=== PATIENT | female | born 1970 | race Caucasian/White ===

== ENCOUNTER → 2021-12-18 09:42 | Outpatient (BNVA) | payer MEDICARE, BC, SELFPAY | PROVIDERS: Visit Provider Internal Medicine Rheumatology | DX: M05.79 Rheumatoid arthritis with rheumatoid factor of multiple sites without organ or systems involvement (principal); Z79.899 Other long term (current) drug therapy; R21 Rash and other nonspecific skin eruption; Z11.59 Encounter for screening for other viral diseases; Z11.1 Encounter for screening for respiratory tuberculosis; Z71.85 Encounter for immunization safety counseling | CPT/HCPCS: 71046; 73130; 73630; 80076; 82565; 85025; 85651; 86140; 86480; 86704; 86803; 87340; 99204 ==

== ENCOUNTER → 2022-04-02 09:35 | Outpatient (BNVA) | payer MEDICARE, BC, SELFPAY | PROVIDERS: PCP Family Medicine; Referring Provider Family Medicine; Visit Provider Podiatrist Foot & Ankle Surgery | DX: M21.621 Bunionette of right foot (principal); M21.622 Bunionette of left foot; M20.41 Other hammer toe(s) (acquired), right foot; M20.42 Other hammer toe(s) (acquired), left foot; M21.41 Flat foot [pes planus] (acquired), right foot; M21.42 Flat foot [pes planus] (acquired), left foot; M79.671 Pain in right foot; M79.672 Pain in left foot; M77.51 Other enthesopathy of right foot and ankle | CPT/HCPCS: 99203; 99204 ==

== ENCOUNTER → 2022-06-11 12:50 | Outpatient (BNVA) | payer MEDICARE, BC, SELFPAY | PROVIDERS: PCP Family Medicine; Visit Provider Podiatrist Foot & Ankle Surgery | DX: M21.621 Bunionette of right foot (principal); M21.622 Bunionette of left foot; M20.41 Other hammer toe(s) (acquired), right foot; M20.42 Other hammer toe(s) (acquired), left foot; M21.41 Flat foot [pes planus] (acquired), right foot; M21.42 Flat foot [pes planus] (acquired), left foot; M77.51 Other enthesopathy of right foot and ankle; M77.41 Metatarsalgia, right foot; M77.42 Metatarsalgia, left foot; M05.79 Rheumatoid arthritis with rheumatoid factor of multiple sites without organ or systems involvement | CPT/HCPCS: 99215 ==

== ENCOUNTER → 2022-07-29 07:50 | Outpatient (BNVA) | payer MEDICARE, BC, SELFPAY | PROVIDERS: PCP Family Medicine; Visit Provider Podiatrist Foot & Ankle Surgery | DX: M21.621 Bunionette of right foot; M21.622 Bunionette of left foot; M20.41 Other hammer toe(s) (acquired), right foot; M20.42 Other hammer toe(s) (acquired), left foot; M21.41 Flat foot [pes planus] (acquired), right foot; M21.42 Flat foot [pes planus] (acquired), left foot; M79.671 Pain in right foot; M79.672 Pain in left foot; M77.51 Other enthesopathy of right foot and ankle; M77.41 Metatarsalgia, right foot; M77.42 Metatarsalgia, left foot; M05.79 Rheumatoid arthritis with rheumatoid factor of multiple sites without organ or systems involvement | CPT/HCPCS: 99214 ==

== ENCOUNTER 2022-08-28 07:09 | Day surgery (SDC) | payer MEDICARE, SELFPAY ==
[2022-08-27 13:48] VITALS: BMI 29.0
[2022-08-28] VITALS (7 sets, daily range): BP systolic 133–169; BP diastolic 83–109; PULSE 65–626; RESP 14–21; TEMP 36.3–36.7; O2SAT 94–98
[2022-08-28] MEDS: sodium chloride 0.9% 1,000 ML 30 ML IV (07:54)
--- NOTE | 2022-08-28 09:21 | W.PM.OPSUD ---
Surgery/Procedure H&P Update DATE OF PROCEDURE: August 28, 2022 DATE H&P PERFORMED: 07/29/22 CHANGES TO PREVIOUS DOCUMENTATION: none PREOP DIAGNOSIS: Arthrogryposis right foot PLANNED PROCEDURE: Operation Date: 08/28/22 09:05 Proposed Procedures p Amputation Toe/s 1,2,3,4,5,/81339W9/M77.41/M79.671/M20.41(Right) - Don Headley DPM
[2022-08-28] MEDS: ceFAZolin 2,000 MG in sodium chloride 0.9% (plus) 50 ML 100 MG IV (09:36)
--- NOTE | 2022-08-28 09:54 | ANES.PREANE2 ---
Pre-Anesthetic Assessment Height/Weight: Height 1.68 m Weight 81.647 kg Temp Pulse Resp BP Pulse Ox O2 Del Method 97.6 F 91 16 169/109 94 08/28/22 07:34 08/28/22 07:34 08/28/22 07:34 08/28/22 07:34 08/28/22 07:34 08/28/22 07:34 Preop Diagnosis: Arthrogryposis right foot Operation Date: 08/28/22 09:05 Proposed Procedures p Amputation Toe/s 1,2,3,4,5,/27407U5/M77.41/M79.671/M20.41(Right) - Don Headley DPM Familial anesthetic complications: none Was Beta Anastasia taken within 24 hours: N/A Was Clonidine taken within 24 hours: N/A Last intake: Intake Last Liquid Date 08/27/22 Last Liquid Time 16:00 Last Solid Date 08/27/22 Last Solid Time 16:00 Social No alcohol and No tobacco Exam alert, oriented x 3 and regular rate & rhythm Airway Submandibular: within normal limits Cervical ROM: within normal limits Mallampati: Class II Dentition: chipped Comments: Comments: poor dentition Musc/skel Rheumatoid Arthritis Anesthetic Plan ASA status: 2 Anesthesia: MAC Medications/Allergies Home Medications Medication Instructions Recorded Confirmed Last Taken Type cyclobenzaprine 10 mg tablet 10 mg PO TID 12/18/21 08/27/22 08/27/22 History duloxetine 60 mg capsule,delayed 60 mg PO DAILY 12/18/21 08/27/22 08/27/22 History release escitalopram oxalate 20 mg tablet 20 mg PO DAILY 12/18/21 08/27/22 08/27/22 History leflunomide 20 mg tablet 20 mg PO DAILY 12/18/21 08/27/22 08/27/22 History omeprazole 20 mg capsule,delayed 20 mg PO DAILY 12/18/21 08/27/22 08/27/22 History release oxycodone 10 mg tablet 10 mg PO QID PRN Pain 12/18/21 08/27/22 08/27/22 History prednisone 5 mg tablet 5 mg PO DAILY 12/18/21 08/27/22 08/27/22 History trazodone 150 mg tablet 150 mg PO BEDTIME 12/18/21 08/27/22 08/26/22 History Silicone Forefoot Prosthetic to #1 ea 06/26/22 07/29/22 Unknown Rx the right benztropine 1 mg tablet 1 mg PO DAILY 06/26/22 08/27/22 08/27/22 History Allergies Allergy/AdvReac Type Severity Reaction Status Date / Time methotrexate Allergy Severe swelling Verified 08/27/22 13:37 gabapentin AdvReac Intermediate Unknown Verified 08/27/22 13:37 Current Medications Generic Name Dose Route Start Last Admin Trade Name Alfonso PRN Reason Stop Dose Admin Sodium Chloride 1,000 mls @ 30 mls/hr 08/28/22 07:30 08/28/22 07:54 Sodium Chloride 0.9% IV 08/29/22 07:29 30 mls/hr .Q24H ESE Administration PFSH Anesthesia Medical History DDD (degenerative disc disease) Fibromyalgia GERD (gastroesophageal reflux disease) High risk medication use Immunization counseling Osteoarthritis Rheumatoid arthritis Seropositive rheumatoid arthritis of multiple sites Skin rash Surgical History History of bilateral knee replacement History of neck surgery History of total hip replacement rt Previous back surgery ruptured disc Family History Other Rheumatoid arthritis Denies family history of Diabetes CAD (coronary artery disease) Chronic kidney disease (CKD) Family history of premature coronary artery disease Lung disease Cancer Hypertension Stroke Social History Smoking and tobacco status: current every day smoker Data Anesthesia Cardiac Studies: No Data to Display
--- NOTE | 2022-08-28 14:06 | PM.OP ---
Operative Report Date of procedure: August 28, 2022 Pre-op diagnosis: Seropositive rheumatoid arthritis Hammertoe contracture to right foot second, third, fourth, fifth toes Post-op diagnosis: Same Procedure done: Right great toe amputation at metatarsophalangeal joint. CPT code 78888 Right second toe amputation at metatarsophalangeal joint. CPT code 44160 Right third toe amputation at metatarsophalangeal joint. CPT code 58614 Right fourth toe amputation at metatarsophalangeal joint. CPT code 19590 Right fifth toe amputation at metatarsal phalangeal joint. CPT code 34898 Implants: 2-0 Vicryl, 4-0 Vicryl, 4-0 nylon Pathology: Great toe, second toe, third toe, fourth toe, fifth toe all right foot sent to pathology for permanent/gross Surgeon: Don Headley D.P.M. Political Science Faculty Member: See intraoperative documentation Estimated blood loss: 25 See intraoperative documentation IV fluids: None Urine output: 0 Complications: None Findings: Nonreducible hammertoe deformities with triplane deformity of digits 2, 3, 4 and 5 right foot. Brief History: Patient requesting transmetatarsal mutation, not interested in hammertoe correction or bunion deformity correction.? Declined psych consult.? I advised patient that there is an emotional component to an amputation of this nature and that she would potentially benefit from a mental health evaluation in preparation for this in the event potentially speaking with somebody who has undergone this type of surgery.? Patient declined any referral of this nature.? She states that she is very sure of herself that this is her best option with her personality type and activity/lifestyle.? She like to schedule her right transmetatarsal mutation August 28, 2022.? I reviewed at length with the patient, the risks, potential complications, benefits, alternatives, expectations, and typical outcomes associated with the surgery. The risks and potential complications were explained in detail, including but not limited to infection, wound dehiscence or soft tissue complications, bleeding and hematoma, chronic edema, neuritis or nerve damage producing numbness or chronic pain, CRPS, failure to relieve pain or worsening pain, thick / painful / unsightly scar, limited motion / stiffness, malposition, delayed union, malunion, or nonunion, fracture, reaction to implants, anesthetic complications, venous thromboembolism, and deformity recurrence.? I discussed the notion of no regrets with the patient as it pertains to complications and outcomes. The patient seemed to understand the nature of the proposed care and required convalescence. They asked appropriate questions, answered to their satisfaction. They are aware no guarantees can be made as to a satisfactory outcome and they understand there may be other possible unforeseen complications or outcomes not listed here that will be treated accordingly if they arise. There were no written or implied guarantees given to the patient. They gave informed consent to proceed.? Patient will require a wheelchair for her recovery to remain nonweightbearing, has poor upper body strength and shoulder pain. Procedure: Under mild sedation the patient was brought to the operating room and remained on the gurney in supine position. A timeout was performed. Anesthesia was then administered by the anesthesia service. Local anesthesia injected by myself and a first, second, third, fourth, fifth ray block fashion consisting of 30 cc of 0.25% Marcaine plain to the right foot. 20 cc of Exparel infiltrated subcutaneously in a grid like fashion dorsally and plantarly at the right midfoot. Well-padded pneumatic tourniquet was then applied to the right ankle. The right lower extremity was then scrubbed, prepped and draped utilizing normal aseptic technique. Right foot was exanguinated with an Esmarch bandage and the tourniquet was then inflated to 250 mmHg. Attention was directed to the right foot where impressive contractures of lesser digits was appreciated. The second toe, third toe, fourth toe and fifth toe had nonreducible triplane component contractures. Similar weightbearing demonstrated that toes 2 through 5 did not purchase the ground when loading the foot. #10 blade utilized to perform full-thickness semielliptical incisions encompassing the first, second, third, fourth, fifth metatarsal phalangeal joints maintaining as much soft tissue both dorsally and plantarly as allowable. Incision was full-thickness down to bone. The great toe, second toe, third toe, fourth toe, fifth toe were then disarticulated sharply through the respective metatarsal phalangeal joints and passed from the operative field to be sent to pathology for permanent/gross identification. The incision was irrigated with copious amounts of sterile skin solution. Flexor and extensor tendons were transected under traction. All bleeders were ligated and cauterized as necessary. Further irrigation was performed with copious amounts of sterile skin solution. Deep fascia was then reapproximated utilizing 2-0 Vicryl, subcutaneous tissue was reapproximated 4-0 Vicryl and skin with 4-0 nylon, plantar and dorsal flaps at the right forefoot amputation of all toes were reapproximated without excessive tension. The incision was then dressed with Adaptic, sterile 4 x 4, Kerlix and Tod wrap, cam boot was applied. Tourniquet was deflated. A prompt hyperemic response was noted at the distal amputation sites of the right foot. Patient tolerated procedure well and was transferred to the PACU with vital signs stable and vascular status intact. Following a period of postoperative monitoring patient will be discharged home may heel touch only for transfers. She has a long-term pain management contract. No additional pain medication was prescribed. She also has muscle relaxers already prescribed to her. Has follow-up scheduled in podiatry clinic as well as at home discharge instructions and at home care instructions. Was provided my cell phone number to contact with any questions or concerns.
--- NOTE | 2022-08-28 14:43 | ANE.PACU2 ---
Inpatient post-anesthesia follow up: Airway intact: Yes Vital signs: Temperature 97.9 F Pulse Rate 65 Respiratory Rate 16 Blood Pressure 133/83 Pulse Oximetry 97 Oxygen Delivery Me thod Room Air Oxygen Flow Rate 6 Fraction of Inspir ed Oxygen Hydration adequate: Yes Nausea and vomiting: No Pain level: 2 Mental status: Baseline
== END 2022-08-28 11:50 | disposition home or self-care (01) ==
PROVIDERS: PCP Family Medicine; Visit Provider Podiatrist Foot & Ankle Surgery
PROC: (CPT 28820; principal; 2022-08-28 08:55)
DX: M20.41 Other hammer toe(s) (acquired), right foot (principal); M20.5X1 Other deformities of toe(s) (acquired), right foot; M79.7 Fibromyalgia; K21.9 Gastro-esophageal reflux disease without esophagitis; M06.9 Rheumatoid arthritis, unspecified; F17.210 Nicotine dependence, cigarettes, uncomplicated
CPT/HCPCS: 28820 ×5; 88305; 88311; C9290; J0690; J1100; J2250; J2405; J2704; J3010; J3490; J7030

== ENCOUNTER → 2022-09-28 13:49 | Outpatient (BNVA) | payer MEDICARE, SELFPAY | PROVIDERS: PCP Family Medicine; Visit Provider Podiatrist Foot & Ankle Surgery | DX: Z98.890 Other specified postprocedural states (principal); Z89.421 Acquired absence of other right toe(s); Z89.411 Acquired absence of right great toe | CPT/HCPCS: 99024 ==

== ENCOUNTER 2022-11-06 05:22 | Day surgery (SDC) | payer MEDICARE, SELFPAY ==
[2022-11-05 10:17] VITALS: BMI 27.3
[2022-11-06] VITALS (11 sets, daily range): BP systolic 134–181; BP diastolic 82–106; PULSE 65–73; RESP 14–18; TEMP 36.1–36.6; O2SAT 95–100
[2022-11-06] MEDS: sodium chloride 0.9% 1,000 ML 30 ML IV (06:06)
--- NOTE | 2022-11-06 06:33 | ANES.PREANE2 ---
Pre-Anesthetic Assessment Height/Weight: Height 1.7 m Weight 79.379 kg Temp Pulse Resp BP Pulse Ox O2 Del Method 97.8 F 73 18 158/86 96 11/06/22 05:58 11/06/22 05:58 11/06/22 05:58 11/06/22 05:58 11/06/22 05:58 11/06/22 06:02 Preop Diagnosis: Hammertoes, arthrogryposis, room toward arthritis, left foot. Operation Date: 11/06/22 07:00 Proposed Procedures p Amputation of toes 1, 2, 3, 4, 5 left foot 13398, 22029, 73324, 06617, 84113, M77.42,M79.672,M20.42,M05.79(Left) - Don Headley DPM Familial anesthetic complications: None Was Beta Anastasia taken within 24 hours: N/A Was Clonidine taken within 24 hours: N/A Last intake: Intake Last Liquid Date 11/05/22 Last Liquid Time 16:00 Last Solid Date 11/05/22 Last Solid Time 14:00 Social Tobacco (Marijuana) and No alcohol .5 pack(s) per day Exam alert, oriented x 3, clear to auscultation bilaterally and regular rate & rhythm Airway Submandibular: within normal limits Cervical ROM: Other (Decreased ROM) Mallampati: Class II Dentition: other (Missing) History/ROS No significant history except as noted and No significant complaints Pulmonary Chronic Obstructive Pulmonary Disease and Sleep Apnea (CPAP at night) CV/HEM Coronary Artery Disease and Hypertension None reported Hepatic None reported GI Gastroesophageal Reflux Disease (None this am) Metabolic None reported Musc/skel Fibromyalgia, Lower Back Pain and Osteoarthritis/DJD Prednisone 5mg daily Neuropsych Neuropathy Anesthetic Plan ASA status: 2 Anesthesia: Anesthesia Evaluation, General and MAC Risk of > 500 ml blood loss (7ml/kg in children): No Medications/Allergies Home Medications Medication Instructions Recorded Confirmed Last Taken Type cyclobenzaprine 10 mg tablet 10 mg PO TID 12/18/21 11/05/22 11/05/22 History escitalopram oxalate 20 mg tablet 20 mg PO DAILY 12/18/21 11/05/22 11/05/22 History leflunomide 20 mg tablet 20 mg PO DAILY 12/18/21 11/06/22 11/05/22 History omeprazole 20 mg capsule,delayed 20 mg PO DAILY 12/18/21 11/05/22 11/05/22 History release oxycodone 10 mg tablet 10 mg PO QID PRN Pain 12/18/21 11/05/22 11/05/22 History prednisone 5 mg tablet 5 mg PO DAILY 12/18/21 11/05/22 11/05/22 History trazodone 150 mg tablet 150 mg PO BEDTIME 12/18/21 11/05/22 11/05/22 History Silicone Forefoot Prosthetic to #1 ea 06/26/22 10/22/22 11/05/22 Rx the right Orthopedic Shoes with a Toe Filler #1 ea 10/05/22 10/22/22 11/05/22 Rx for the Right Foot Toe Filler for the Left Foot #1 ea 11/03/22 11/03/22 11/05/22 Rx Allergies Allergy/AdvReac Type Severity Reaction Status Date / Time methotrexate Allergy Severe swelling Verified 10/22/22 13:32 gabapentin AdvReac Intermediate Unknown Verified 10/22/22 13:32 Current Medications Generic Name Dose Route Start Last Admin Trade Name Freq PRN Reason Stop Dose Admin Sodium Chloride 1,000 mls @ 30 mls/hr 11/06/22 05:45 11/06/22 06:06 Sodium Chloride 0.9% IV 11/07/22 05:44 30 mls/hr .Q24H ESE Administration PFSH Anesthesia Medical History DDD (degenerative disc disease) Fibromyalgia GERD (gastroesophageal reflux disease) High risk medication use Immunization counseling Osteoarthritis Rheumatoid arthritis Seropositive rheumatoid arthritis of multiple sites Skin rash Surgical History History of bilateral knee replacement History of neck surgery History of total hip replacement rt Previous back surgery ruptured disc Family History Other Rheumatoid arthritis Denies family history of Diabetes CAD (coronary artery disease) Chronic kidney disease (CKD) Family history of premature coronary artery disease Lung disease Cancer Hypertension Stroke Social History Smoking and tobacco status: current every day smoker Data Anesthesia Cardiac Studies: No Data to Display
--- NOTE | 2022-11-06 06:35 | W.PM.OPSUD ---
Surgery/Procedure H&P Update DATE OF PROCEDURE: November 06, 2022 DATE H&P PERFORMED: 10/22/22 CHANGES TO PREVIOUS DOCUMENTATION: None PREOP DIAGNOSIS: Hammertoes, arthrogryposis, room toward arthritis, left foot. PLANNED PROCEDURE: Operation Date: 11/06/22 07:00 Proposed Procedures p Amputation of toes 1, 2, 3, 4, 5 left foot 13010, 99511, 56736, 31141, 39911, M77.42,M79.672,M20.42,M05.79(Left) - Don Headley DPM
--- NOTE | 2022-11-06 06:36 | P.OP_ITS ---
Operative Report Brief History: Patient requesting transmetatarsal mutation, not interested in hammertoe correction or bunion deformity correction.? Declined psych consult.? I advised patient that there is an emotional component to an amputation of this nature and that she would potentially benefit from a mental health evaluation in preparation for this in the event potentially speaking with somebody who has undergone this type of surgery.? Patient declined any referral of this nature.? She states that she is very sure of herself that this is her best option with her personality type and activity/lifestyle.? She like to schedule her left transmetatarsal mutation August 28, 2022.? I reviewed at length with the patient, the risks, potential complications, benefits, alternatives, expectations, and typical outcomes associated with the surgery. The risks and potential complications were explained in detail, including but not limited to infection, wound dehiscence or soft tissue complications, bleeding and hematoma, chronic edema, neuritis or nerve damage producing numbness or chronic pain, CRPS, failure to relieve pain or worsening pain, thick / painful / unsightly scar, limited motion / stiffness, malposition, delayed union, malunion, or nonunion, fracture, reaction to implants, anesthetic complications, venous throm boembolism, and deformity recurrence.? I discussed the notion of no regrets with the patient as it pertains to complications and outcomes. The patient seemed to understand the nature of the proposed care and required convalescence. They asked appropriate questions, answered to their satisfaction. They are aware no guarantees can be made as to a satisfactory outcome and they understand there may be other possible unforeseen complications or outcomes not listed here that will be treated accordingly if they arise. There were no written or implied guarantees given to the patient. They gave informed consent to proceed.? Patient will require a wheelchair for her recovery to remain nonweightbearing, has poor upper body strength and shoulder pain. Procedure: Date of procedure: November 06, 2022 Pre-op diagnosis: Seropositive rheumatoid arthritis Hammertoe contracture to left foot second, third, fourth, fifth toes Arthrogryposis Post-op diagnosis: Same Procedure done: Left great toe amputation at metatarsophalangeal joint.? CPT code 72959 Left second toe amputation at metatarsophalangeal joint.? CPT code 45533 Left third toe amputation at metatarsophalangeal joint.? CPT code 94881 Left fourth toe amputation at metatarsophalangeal joint.? CPT code 27635 Left fifth toe amputation at metatarsal phalangeal joint.? CPT code 39004 Implants: 2-0 Vicryl, 4-0 Vicryl, 4-0 nylon Pathology: Great toe, second toe, third toe, fourth toe, fifth toe all left foot sent to pathology for permanent/gross Surgeon: Don Headley D.P.M. Psychology Intern: Fransisca See intraoperative documentation Estimated blood loss: 10 mL Tourniquet time: 30 minutes IV fluids: None Urine output: 0 Complications: None Findings: Nonreducible hammertoe deformities with triplane deformity of digits 2, 3, 4 and 5 left foot. Procedure: Under mild sedation the patient was brought to the operating room and remained on the gurney in supine position.? A timeout was performed.? Anesthesia was then administered by the anesthesia service.? Local anesthesia injected by myself and a first, second, third, fourth, fifth ray block fashion consisting of 30 cc of 0.25% Marcaine plain to the left foot.? 20 cc of Exparel infiltrated subcutaneously in a grid like fashion dorsally and plantarly at the left midfoot.? Well-padded pneumatic tourniquet was then applied to the left ankle.? The left lower extremity was then scrubbed, prepped and draped utilizing normal aseptic technique.? Left foot was exanguinated with an Esmarch bandage and the tourniquet was then inflated to 250 mmHg. 6 Attention was directed to the left foot where impressive contractures of lesser digits was appreciated.? The second toe, third toe, fourth toe and fifth toe had nonreducible triplane component contractures.? Similar weightbearing demonstrated that toes 2 through 5 did not purchase the ground when loading the foot.? #10 blade utilized to perform full-thickness semielliptical incisions encompassing the first, second, third, fourth, fifth metatarsal phalangeal joints maintaining as much soft tissue both dorsally and plantarly as allowable.? Incision was full-thickness down to bone.? The great toe, second toe, third toe, fourth toe, fifth toe were then disarticulated sharply through the respective metatarsal phalangeal joints and passed from the operative field to be sent to pathology for permanent/gross identification.? The incision was irrigated with copious amounts of sterile skin solution.? Flexor and extensor tendons were transected under traction.? All bleeders were ligated and caut erized as necessary.? Further irrigation was performed with copious amounts of sterile skin solution.? Deep fascia was then reapproximated utilizing 2-0 Vicryl, subcutaneous tissue was reapproximated 4-0 Vicryl and skin with 4-0 nylon, plantar and dorsal flaps at the left forefoot amputation of all toes were reapproximated without excessive tension.? The incision was then dressed with Adaptic, sterile 4 x 4, Kerlix and Tod wrap, cam boot was applied.? Tourniquet was deflated.? A prompt hyperemic response was noted at the distal amputation sites of the left foot.? Patient tolerated procedure well and was transferred to the PACU with vital signs stable and vascular status intact.? Following a period of postoperative monitoring patient will be discharged home may heel touch only for transfers.? She has a long-term pain management contract.? No additional pain medication was prescribed.? She also has muscle relaxers already prescribed to her.? Has follow-up scheduled in podiatry clinic as well as at home discharge instructions and at home care instructions.? Was provided my cell phone number to contact with any questions or concerns.
[2022-11-06] MEDS: ceFAZolin 2,000 MG in sodium chloride 0.9% (plus) 50 ML 100 MG IV (06:57)
[2022-11-06] MEDS: fentaNYL 50 mcg/mL INJ 2mL 100 MCG IVP (08:35)
[2022-11-06] MEDS: ondansetron 2 mg/ML SDV 2 mL 4 MG IVP (08:36)
[2022-11-06] MEDS: oxyCODONE 5 mg IR Tab/Cap 10 MG PO (09:18)
--- NOTE | 2022-11-06 14:09 | ANE.PACU2 ---
Inpatient post-anesthesia follow up: Airway intact: Yes Vital signs: Temperature 97 F Pulse Rate 65 Respiratory Rate 18 Blood Pressure 158/90 Pulse Oximetry 96 Oxygen Delivery Me thod Room Air Oxygen Flow Rate Fraction of Inspir ed Oxygen Hydration adequate: Yes Nausea and vomiting: No Pain level: 5 Mental status: Baseline Additional Comments: Lots of pain postop, ankle blk by surgeon, pop blk by anesthesia--difficult to control.
== END 2022-11-06 09:00 | disposition home or self-care (01) ==
PROVIDERS: PCP Family Medicine; Visit Provider Podiatrist Foot & Ankle Surgery
PROC: (CPT 28820; principal; 2022-11-06 07:00)
DX: M20.42 Other hammer toe(s) (acquired), left foot (principal); M05.9 Rheumatoid arthritis with rheumatoid factor, unspecified; J44.9 Chronic obstructive pulmonary disease, unspecified; M79.7 Fibromyalgia; Z79.52 Long term (current) use of systemic steroids; G47.30 Sleep apnea, unspecified; I25.10 Atherosclerotic heart disease of native coronary artery without angina pectoris; I10 Essential (primary) hypertension; K21.9 Gastro-esophageal reflux disease without esophagitis; Z79.899 Other long term (current) drug therapy; F17.200 Nicotine dependence, unspecified, uncomplicated
CPT/HCPCS: 28820 ×5; 88305; 88311; C9290; J0690; J1170; J2250; J2405; J2704; J3010; J3490; J7030

== ENCOUNTER → 2022-11-12 13:48 | Outpatient (BNVA) | payer MEDICARE, SELFPAY | PROVIDERS: PCP Family Medicine; Visit Provider Podiatrist Foot & Ankle Surgery | DX: Z98.890 Other specified postprocedural states (principal) | CPT/HCPCS: 99024 ==

== ENCOUNTER → 2022-11-26 14:18 | Outpatient (BNVA) | payer MEDICARE, SELFPAY | PROVIDERS: PCP Family Medicine; Visit Provider Podiatrist Foot & Ankle Surgery | DX: Z98.890 Other specified postprocedural states (principal); Z89.422 Acquired absence of other left toe(s); Z89.412 Acquired absence of left great toe | CPT/HCPCS: 99213 ==

== ENCOUNTER → 2022-12-17 13:03 | Outpatient (BNVA) | payer MEDICARE, SELFPAY | PROVIDERS: PCP Family Medicine; Visit Provider Podiatrist Foot & Ankle Surgery | DX: Z98.890 Other specified postprocedural states (principal); M79.672 Pain in left foot; M79.671 Pain in right foot; Z89.422 Acquired absence of other left toe(s); Z89.412 Acquired absence of left great toe | CPT/HCPCS: 36415; 73630; 80076; 82565; 85025; 86140; 99024 ==

== ENCOUNTER 2022-12-17 13:40 | Outpatient (CLI) | payer MEDICARE, SELFPAY ==
[2022-12-17 14:39] LABS: Basophils # 0.1 10^3/uL (0.0-0.1); Eosinophils # 0.1 10^3/uL (0.0-0.8); Eosinophils % 0.7 %; Hematocrit 38.4 % (37.0-47.0); Hemoglobin 12.4 g/dL (11.5-15.3); Lymphocytes % 11.5 %; Mean Corpuscular HGB Conc 32.3 g/dL (30.0-36.0); Mean Corpuscular Hemoglobin 27.9 pg (28.0-34.0); Mean Corpuscular Volume 86.5 fl (81-99); Mean Platelet Volume 10.1 fL (7.4-10.4); Monocytes # 0.6 10^3/uL (0.2-0.9); Monocytes % 7.6 %; Neutrophils # 6.65 10^3/uL (1.8-7.7); Nucleated Red Blood Cells % 0 %; Platelet Count 304 10^3/cmm (130-400); Red Blood Count 4.44 10^6/uL (4.1-5.3); Red Cell Distribution Width 13.1 % (12.1-15.1); White Blood Count 8.4 10^3/uL (4.0-10.0)
[2022-12-17 15:02] LABS: Alanine Aminotransferase 9 U/L (0-33); Albumin Level 3.9 g/dL (3.5-5.2); Alkaline Phosphatase 124 U/L (35-105); Aspartate Amino Transferase 15 U/L (0-32); C Reactive Protein 13.1 mg/L (0.0-4.9); Globulin 3.3 g/dL (1.3-4.6); Glomerular Filtration Rate 57.8 mL/min (90-130); Total Bilirubin 0.2 mg/dL (0.15-1.2); Total Protein 7.2 g/dL (6.6-8.7)
== END 2022-12-17 13:41 | disposition home or self-care (01) ==
LOC: LAB 13:44
PROVIDERS: PCP Family Medicine; Visit Provider Internal Medicine Rheumatology
DX: M05.79 Rheumatoid arthritis with rheumatoid factor of multiple sites without organ or systems involvement (principal); Z79.899 Other long term (current) drug therapy; M19.90 Unspecified osteoarthritis, unspecified site; Z98.890 Other specified postprocedural states; M79.672 Pain in left foot; M79.671 Pain in right foot; Z89.422 Acquired absence of other left toe(s); Z89.412 Acquired absence of left great toe
CPT/HCPCS: 36415; 80076; 82565; 85025; 86140; 99024

== ENCOUNTER → 2022-12-29 14:09 | Outpatient (BNVA) | payer MEDICARE, SELFPAY | PROVIDERS: PCP Family Medicine; Visit Provider Internal Medicine Rheumatology | DX: M05.79 Rheumatoid arthritis with rheumatoid factor of multiple sites without organ or systems involvement (principal); Z79.899 Other long term (current) drug therapy; Z71.85 Encounter for immunization safety counseling; R21 Rash and other nonspecific skin eruption | CPT/HCPCS: 99214 ==

== ENCOUNTER → 2023-01-11 14:42 | Outpatient (BNVA) | payer MEDICARE, SELFPAY | PROVIDERS: PCP Family Medicine; Visit Provider Podiatrist Foot & Ankle Surgery | DX: M77.41 Metatarsalgia, right foot (principal); M77.42 Metatarsalgia, left foot; Z89.432 Acquired absence of left foot; Z89.431 Acquired absence of right foot; M06.871 Other specified rheumatoid arthritis, right ankle and foot; M06.872 Other specified rheumatoid arthritis, left ankle and foot | CPT/HCPCS: 99213 ==

== ENCOUNTER → 2023-03-22 11:04 | Outpatient (BNVA) | payer MEDICARE, SELFPAY | PROVIDERS: PCP Family Medicine; Visit Provider Podiatrist Foot & Ankle Surgery | DX: M05.79 Rheumatoid arthritis with rheumatoid factor of multiple sites without organ or systems involvement; Z89.432 Acquired absence of left foot; Z89.431 Acquired absence of right foot; M06.30 Rheumatoid nodule, unspecified site | CPT/HCPCS: 99213 ==

== ENCOUNTER 2023-04-02 09:40 | Day surgery (SDC) | payer MEDICARE, SELFPAY ==
[2023-04-01 12:03] VITALS: BMI 25.5
[2023-04-02] VITALS (14 sets, daily range): BP systolic 103–149; BP diastolic 57–102; PULSE 67–76; RESP 16–18; TEMP 36.6–36.8; O2SAT 92–100; BMI 25.5
[2023-04-02] MEDS: CELEcoxib 200 mg Capsule 400 MG PO (10:19)
[2023-04-02] MEDS: sodium chloride 0.9% 1,000 ML 30 ML IV (10:19)
--- NOTE | 2023-04-02 10:49 | P.ANESASSM_ITS ---
Pre-Anesthetic Assessment Height/Weight: Height 1.7 m Weight 73.936 kg O2 Del Method Room Air 04/02/23 09:52 Preop Diagnosis: Rheumatoid nodules, metatarsalgia, left foot. Operation Date: 04/02/23 11:25 Proposed Procedures p Left transmetatarsal amputation 69374,M06.30,M05.79,m79.672,M77.4(Left) - Don Headley DPM Familial anesthetic complications: None Was Beta Anastasia taken within 24 hours: N/A Was Clonidine taken within 24 hours: N/A Last intake: Intake Last Liquid Date 04/01/23 Last Liquid Time 21:00 Last Solid Date 04/01/23 Last Solid Time 21:00 Social Tobacco and No alcohol Marijuana Exam alert, oriented x 3, clear to auscultation bilaterally and regular rate & rhythm Airway Mallampati: Class II Dentition: other (poor dentition) Pulmonary Chronic Obstructive Pulmonary Disease and Sleep Apnea CV/HEM Coronary Artery Disease and Hypertension GI Gastroesophageal Reflux Disease [facility] [place] Fibromyalgia and Rheumatoid Arthritis (prednisone 5 mg daily ) Anesthetic Plan ASA status: 3 Anesthesia: MAC Risk of > 500 ml blood loss (7ml/kg in children): No Medications/Allergies Home Medications Medication Instructions Recorded Confirmed Last Taken Type cyclobenzaprine 10 mg tablet 10 mg PO TID PRN Muscle Spasm 12/18/21 04/01/23 03/31/23 History escitalopram oxalate 20 mg tablet 20 mg PO DAILY 12/18/21 04/01/23 04/01/23 History 0800 leflunomide 20 mg tablet 20 mg PO DAILY 12/18/21 04/01/23 04/01/23 History omeprazole 20 mg capsule,delayed 20 mg PO DAILY PRN Heartburn 12/18/21 04/01/23 03/31/23 History release oxycodone 10 mg tablet 10 mg PO QID PRN Pain 12/18/21 04/02/23 04/02/23 07:45 History prednisone 5 mg tablet 5 mg PO DAILY 12/18/21 04/01/23 04/01/23 History 0800 trazodone 150 mg tablet 150 mg PO BEDTIME 12/18/21 04/01/23 04/01/23 History Silicone Forefoot Prosthetic to #1 ea 06/26/22 03/22/23 11/05/22 Rx the right Orthopedic Shoes with a Toe Filler #1 ea 10/05/22 03/22/23 11/05/22 Rx for the Right Foot Orthopedic Shoes 1 Pair #1 ea 01/11/23 03/22/23 Unknown Rx Toe Filler Bilateral #1 ea 01/11/23 03/22/23 Unknown Rx benztropine 1 mg tablet 1 mg PO DAILY 04/01/23 04/01/23 04/01/23 History duloxetine 60 mg capsule,delayed 60 mg PO DAILY 04/01/23 04/01/23 04/01/23 History release varenicline 1 mg tablet (Chantix) 1 mg PO BID 04/01/23 04/01/23 04/01/23 History Allergies Allergy/AdvReac Type Severity Reaction Status Date / Time methotrexate Allergy Severe swelling Verified 03/22/23 11:15 gabapentin AdvReac Intermediate Unknown Verified 03/22/23 11:15 Current Medications Generic Name Dose Route Start Last Admin Trade Name Freq PRN Reason Stop Dose Admin Sodium Chloride 1,000 mls @ 30 mls/hr 04/02/23 10:00 04/02/23 10:19 Sodium Chloride 0.9% IV 04/03/23 09:59 30 mls/hr .Q24H ESE Administration PFSH Anesthesia Medical History DDD (degenerative disc disease) Fibromyalgia GERD (gastroesophageal reflux disease) High risk medication use Immunization counseling Osteoarthritis Rheumatoid arthritis Seropositive rheumatoid arthritis of multiple sites Skin rash Surgical History History of bilateral knee replacement History of neck surgery History of total hip replacement rt Previous back surgery ruptured disc Family History Other Rheumatoid arthritis Denies family history of Diabetes CAD (coronary artery disease) Chronic kidney disease (CKD) Family history of premature coronary artery disease Lung disease Cancer Hypertension Stroke Social History Smoking and tobacco status: current every day smoker Data Anesthesia Cardiac Studies: No Data to Display
--- NOTE | 2023-04-02 11:16 | W.PM.OPSUD ---
Surgery/Procedure H&P Update DATE OF PROCEDURE: April 02, 2023 DATE H&P PERFORMED: 03/22/23 CHANGES TO PREVIOUS DOCUMENTATION: none PREOP DIAGNOSIS: Rheumatoid nodules, metatarsalgia, left foot. PLANNED PROCEDURE: Operation Date: 04/02/23 11:25 Proposed Procedures p Left transmetatarsal amputation 53265,M06.30,M05.79,m79.672,M77.4(Left) - Don Headley DPM
[2023-04-02] MEDS: fentaNYL 50 mcg/mL INJ 2mL IVP ×2 (11:19→13:05)
--- NOTE | 2023-04-02 11:22 | PC.NURSE ---
Addendum entered by Vivian Hoyt RN 04/02/23 11:23: Teaching completed on Fentanyl with patient Original Note: pain med- fentanyl given for pain after Dr. Headley saw her.
[2023-04-02] MEDS: ceFAZolin 2,000 MG in sodium chloride 0.9% (plus) 50 ML 100 MG IV (11:33)
[2023-04-02] MEDS: BUPivacaine 0.5% INJ 30 mL INJECTION (11:50)
[2023-04-02] MEDS: BUPivacaine liposome 13.3 mg/mL SDV 10 mL 266 MG XX (11:50)
--- NOTE | 2023-04-02 12:27 | P.OP_ITS ---
Operative Report Date of procedure: April 02, 2023 Pre-op diagnosis: Preop Diagnosis Rheumatoid nodules, metatarsalgia, left foot. Post-op diagnosis: Same Post-op findings: See operative report Procedure done: Left transmetatarsal amputation. CPT code 06550 Implants: 3-0 Vicryl, 3-0 nylon 30 cc of 0.5% Marcaine plain left foot preop block 20 cc of Exparel left foot preop block Surgeon: Don Headley D.P.M. Stitcher Tape Controlled Machine: Kathleen Estimated blood loss: 5 26 IV fluids: 0 Urine output: 0 Complications: None Brief History: Pleasant 52-year-old female with seropositive rheumatoid arthritis is status post left and right transmetatarsal amputation secondary to arthrogryposis. She is requesting a revision to her amputation site due to painful nodules that are developing under the ball of her left and right foot, left is more symptomatic.? She has history of rheumatoid arthritis.? Rheumatoid nodules are palpable submetatarsal heads distally left greater than right.? She is requesting surgical excision.? I consulted with the patient in regards to risks of reoccurrence of rheumatoid nodules.? To further offload the ball of her foot advised osteotomy to distal metatarsals for shortening of metatarsals to further offload the current nodules along with soft tissue mass excision.? Patient wishes to proceed with a left foot first.? I reviewed at length with the patient, the risks, potential complications, benefits, alternatives, expectations, and typical outcomes associated with the surgery. The risks and potential complications were explained in detail, including but not limited to infection, wound dehiscence or soft tissue complications, bleeding and hematoma, chronic edema, neuritis or nerve damage producing numbness or chronic pain, CRPS, failure to relieve pain or worsening pain, thick / painful / unsightly scar, limited motion / stiffness, malposition, delayed union, malunion, or nonunion, fracture, reaction to implants, anesthetic complications, venous thromboembolism, and deformity recurrence.? I discussed the notion of no regrets with the patient as it pertains to complications and outcomes. The patient seemed to understand the nature of the proposed care and required convalescence. They asked appropriate questions, answered to their satisfaction. They are aware no guarantees can be made as to a satisfactory outcome and they understand there may be other possible unforeseen complications or outcomes not listed here that will be treated accordingly if they arise. There were no written or implied guarantees given to the patient. They gave informed consent to proceed. Procedure: Under mild sedation the patient was brought to the operating room and remained on the gurney in supine position. A timeout was performed. Anesthesia was then administered by the anesthesia service. Local anesthesia injected by myself consisting of 30 cc of 0.5% Marcaine plain in a left forefoot ring block. Additional 20 cc of Exparel infiltrated subcutaneously in a grid like fashion both dorsally and plantarly at the left forefoot proximal to the operative site. Well-padded pneumatic tourniquet was applied to the left calf. The left lower extremity was scrubbed, prepped and draped utilizing normal aseptic technique. Left foot and ankle were exanguinated with an Esmarch bandage and tourniquet inflated to 250 mmHg. Attention was directed to the left forefoot, submetatarsal heads were palpable and prominent. Over the previous cicatrix a fishmouth incision was performed at the distal left forefoot. A incision was made down full-thickness to bone with a #15 blade. Metatarsals 1, 2, 3, 4, 5 were reflected of their periosteal attachments both dorsally and plantarly and resected proximal to the metatarsal neck with an oscillating saw to the first, second, third, fourth and fifth metatarsals maintaining a metatarsal parabola with second metatarsal being longest. First and fifth metatarsals were beveled. These were passed from the operative field. The incision was irrigated with copious amounts of sterile saline solution. Redundant soft tissue was sharply debrided with pickups and a 15 blade. All bleeders were ligated and cauterized as necessary. Extensor and flexor tendons were transected under traction. Further irrigation was performed with saline solution followed by closure with deep fascia and subcutaneous closed with 3-0 Vicryl and skin closed with 3-0 nylon. The incision was dressed with Adaptic, sterile 4 x 4's, Kerlix and Tod wrap followed by application of a cam boot. Patient tolerated the procedure and anesthesia well and was transferred to the PACU with vital signs stable and vascular status intact. Following a period of postoperative monitoring she will be discharged home, is to be nonweightbearing to the left lower extremity. Is to elevate her left foot while resting. Was given at home care instructions, scheduled follow-up and my cell phone number to contact with any postoperative questions or concerns.
--- NOTE | 2023-04-02 13:34 | ANES.PROC ---
Anesthesia Procedures Procedure/Date: 04/02/23 Nerve Block ^: Nerve Block 1: Main Anesthesia: general anesthesia Time Out Performed: Yes Consent: requested by attending/covering physician, from patient (verbal), from other and risks and benefits reviewed Anesthesia monitors applied: pulse oximetry, EKG, BP cuff and oxygen Nerve block position: supine Anesthetic Used: ropivicaine 0.5% (15 cc) Ultrasound used to: recognize landmarks Nerve Stimulator Used?: No Interscalene/Femoral BLK: 4 stimuplex 21 g needle used for position and inplane approach, visualize local anesthetic spread and no vascular puncture identified Patient Tolerated Procedure: well Complications: none Additional Comments: Nerve block performed for extreme refractory pain, limited volume and ropiviciane use d/t previous bupivicaine and exparel dose
--- NOTE | 2023-04-02 14:11 | ANE.PACU2 ---
Inpatient post-anesthesia follow up: Airway intact: Yes Vital signs: Temperature 98 F Pulse Rate 67 Respiratory Rate 17 Blood Pressure 120/65 Pulse Oximetry 96 Oxygen Delivery Me thod Room Air Oxygen Flow Rate 6 Fraction of Inspir ed Oxygen Hydration adequate: Yes Nausea and vomiting: No Pain level: 1 Mental status: Baseline
== END 2023-04-02 14:10 | disposition home or self-care (01) ==
PROVIDERS: PCP Family Medicine; Visit Provider Podiatrist Foot & Ankle Surgery
PROC: (CPT 28805; principal; 2023-04-02 11:15)
DX: M77.42 Metatarsalgia, left foot (principal); M06.372 Rheumatoid nodule, left ankle and foot; M05.9 Rheumatoid arthritis with rheumatoid factor, unspecified; I10 Essential (primary) hypertension; J44.9 Chronic obstructive pulmonary disease, unspecified; M79.7 Fibromyalgia; G47.30 Sleep apnea, unspecified; I25.10 Atherosclerotic heart disease of native coronary artery without angina pectoris; F17.200 Nicotine dependence, unspecified, uncomplicated; Z79.52 Long term (current) use of systemic steroids; Z79.899 Other long term (current) drug therapy; Z89.431 Acquired absence of right foot
CPT/HCPCS: 28805; C9290; J0690; J1100; J1200; J2405; J2704; J2795; J3010; J3490; J7030

== ENCOUNTER → 2023-04-15 13:45 | Outpatient (BNVA) | payer MEDICARE, SELFPAY | PROVIDERS: PCP Family Medicine; Visit Provider Podiatrist Foot & Ankle Surgery | DX: M05.79 Rheumatoid arthritis with rheumatoid factor of multiple sites without organ or systems involvement; Z89.432 Acquired absence of left foot; Z89.431 Acquired absence of right foot; M79.671 Pain in right foot; M79.672 Pain in left foot; M06.30 Rheumatoid nodule, unspecified site | CPT/HCPCS: 99024 ==

== ENCOUNTER → 2023-04-28 10:21 | Outpatient (BNVA) | payer MEDICARE, SELFPAY | PROVIDERS: PCP Family Medicine; Visit Provider Podiatrist Foot & Ankle Surgery | DX: Z89.431 Acquired absence of right foot (principal); Z89.432 Acquired absence of left foot | CPT/HCPCS: 99024 ==

== ENCOUNTER 2023-05-02 23:54 | Emergency (ER) | payer MEDICARE, SELFPAY ==
[2023-05-03 00:03] VITALS: BP 155/92; PULSE 89; RESP 20; O2SAT 97; BMI 25.0
--- NOTE | 2023-05-03 00:20 | W.ED.DENTAL ---
HPI - Dental/Oral General: Chief complaint: Dental/Oral Stated complaint: body aches Time Seen by Provider: 05/03/23 00:14 History of Present Illness: 52-year-old female comes in with left TMJ pain. Patient believes she is having a flare of her rheumatoid arthritis. No obvious redness or swelling is noted in the area of complaints of pain. Patient appears nontoxic. Patient reports pain started tonight. Patient did take 10 mg oxycodone prior to coming in with minimal to no relief. Patient also taking 15 mg of prednisone. Associated symptoms: Denies fever(s) Review of Systems Const: Denies: fever(s) ENMT: Reports: other (Jaw pain) PFSH ED PFSH: Medical History DDD (degenerative disc disease) Fibromyalgia GERD (gastroesophageal reflux disease) High risk medication use Immunization counseling Osteoarthritis Rheumatoid arthritis Seropositive rheumatoid arthritis of multiple sites Skin rash Surgical History History of bilateral knee replacement History of neck surgery History of total hip replacement rt Previous back surgery ruptured disc Family History Other Rheumatoid arthritis Denies family history of Diabetes CAD (coronary artery disease) Chronic kidney disease (CKD) Family history of premature coronary artery disease Lung disease Cancer Hypertension Stroke Social History Smoking and tobacco status: current every day smoker Physical Exam Const: COMMON NORMALS: alert HENMT: COMMON NORMALS: normocephalic HEAD & SCALP: normocephalic MOUTH: Normal oral and palatal mucosa present TEETH & GINGIVA: Yes edentulous (Multiple teeth missing) OTHER: No redness is noted along the left trans mandibular joint, no swelling. Neck/C-Spine: COMMON NORMALS: full ROM Resp: COMMON NORMALS: normal respiratory effort Cardio: COMMON NORMALS: regular rate RATE: regular rate GI: COMMON NORMALS: Soft to palpation and non-tender PALPATION: Yes Soft to palpation Extremity: COMMON NORMALS: full ROM OTHER: Deformities to both hands from rheumatoid arthritis Neuro: SENSORIUM/ORIENTATION: Yes alert Skin: COMMON NORMALS: turgor normal GENERAL SKIN EXAM: turgor normal Course Vital Signs: Vital signs: Vital Signs Pulse Rate 89 09/11/23 00:03 Respiratory Rate 20 H 05/03/23 00:03 Blood Pressure 155/92 05/03/23 00:03 Pulse Oximetry 97 05/03/23 00:03 Oxygen Delivery Me thod Room Air 05/03/23 00:03 MDM - Dental/Oral Medical Decision Making 52-year-old female comes in today for complaints of left jaw pain. Patient appears nontoxic. Patient appears in moderate pain. On exam patient has no obvious swelling or redness noted to the jaw. Patient is very guarded with movement of the jaw. Respirations are even lungs are clear to auscultation. Skin is warm and dry. Vital signs are normal except for some elevation in blood pressure. Differential diagnosis includes TMJ syndrome, exacerbation of rheumatoid arthritis, dental infection. CBC showed 11,000 white count, sed rate was 30, CRP was 20, CMP was unremarkable. Exam noted no significant swelling or redness of the jaw. I recommended patient follow-up with specialist regarding her concerns that her rheumatoid arthritis is involving her trans mandibular joint. At this time I do not see no significant flare this may just be arthritis in the joint or patient is malingering. Patient should continue routine meds follow-up as needed. Lab Data 05/03/23 00:34 05/03/23 00:34 Laboratory Results WBC 11.78 10^3/uL (3.29-11.43) H 05/03/23 00:34 RBC 4.79 10^6/uL (3.85-5.65) 05/03/23 00:34 Hgb 13.20 g/dL (11.27-16.99) 05/03/23 00:34 Hct 41.1 % (36-47) 05/03/23 00:34 MCV 85.8 fl (85-98) 05/03/23 00:34 MCH 27.6 pg (27-33) 05/03/23 00:34 MCHC 32.1 g/dL (30-55) 05/03/23 00:34 RDW 12.9 % (12.1-15.1) 05/03/23 00:34 Plt Count 465 10^3/cmm (157-399) H 05/03/23 00:34 MPV 9.1 fL (7.4-10.4) 05/03/23 00:34 Neut % (Auto) 78.4 % 05/03/23 00:34 Lymph % (Auto) 11.5 % 05/03/23 00:34 [place] % (Auto) 8.6 % 05/03/23 00:34 Eos % (Auto) 0.7 % 05/03/23 00:34 Baso % (Auto) 0.5 % 05/03/23 00:34 Neut # (Auto) 9.23 10^3/uL (1.8-7.7) H 05/03/23 00:34 Lymph # (Auto) 1.4 10^3/uL (0.8-4.8) 05/03/23 00:34 [place] # (Auto) 1.0 10^3/uL (0.2-0.9) H 05/03/23 00:34 Eos # (Auto) 0.1 10^3/uL (0.0-0.8) 05/03/23 00:34 Baso # (Auto) 0.1 10^3/uL (0.0-0.1) 05/03/23 00:34 Nucleated RBC % (auto) 0 % 05/03/23 00:34 Nucleated RBCs # 0.0 /100WBC 05/03/23 00:34 ESR 34 mm/hr (0-15) H 05/03/23 00:34 Sodium 137 mmol/L (136-145) 05/03/23 00:34 Potassium 4.0 mmol/L (3.5-5.1) 05/03/23 00:34 Chloride 96 mmol/L (98-107) L 05/03/23 00:34 Carbon Dioxide 26 mmol/L (22-29) 05/03/23 00:34 Anion Gap 19.0 (5-19) 05/03/23 00:34 BUN 24 mg/dL (6-20) H 05/03/23 00:34 Creatinine 0.7 mg/dL (0.5-0.9) 05/03/23 00:34 GFR Calculation 87.2 mL/min (90-130) L 05/03/23 00:34 Glucose 136 mg/dL (65-115) H 05/03/23 00:34 Calculated Osmolality 290 mOsm/kg (285-295) 05/03/23 00:34 Calcium 10.2 mg/dL (8.5-10.5) 05/03/23 00:34 Total Bilirubin 0.4 mg/dL (0.15-1.2) 05/03/23 00:34 AST 14 U/L (0-32) 05/03/23 00:34 ALT 12 U/L (0-33) 05/03/23 00:34 Alkaline Phosphatase 146 U/L (35-105) H 05/03/23 00:34 C-Reactive Protein 20.8 mg/L (0.0-4.9) H 05/03/23 00:34 Total Protein 8.4 g/dL (6.6-8.7) 05/03/23 00:34 Albumin 4.3 g/dL (3.5-5.2) 05/03/23 00:34 Globulin 4.1 g/dL (1.3-4.6) 05/03/23 00:34 Discharge Plan Discharge Patient Disposition: Home Clinical Impression: TMJ arthralgia Qualifiers: Laterality: unspecified laterality Qualified Code(s): M26.629 - Arthralgia of temporomandibular joint, unspecified side Condition: Stable Prescriptions: No Action cyclobenzaprine 10 mg tablet 10 mg PO TID PRN (Reason: Muscle Spasm) escitalopram oxalate 20 mg tablet 20 mg PO DAILY leflunomide 20 mg tablet 20 mg PO DAILY omeprazole 20 mg capsule,delayed release(DR/EC) 20 mg PO DAILY PRN (Reason: Heartburn) prednisone 5 mg tablet 5 mg PO DAILY trazodone 150 mg tablet 150 mg PO BEDTIME oxycodone 10 mg tablet 10 mg PO QID PRN (Reason: Pain) (DME) Silicone Forefoot Prosthetic to the right See Rx Instructions .Route .MEDSUPPLY Qty: 1 0RF Rx Instructions: As directed [facility] ([facility] [place]) Orthopedic Shoes 1 Pair See Rx Instructions .Route .MEDSUPPLY Qty: 1 0RF Rx Instructions: As directed ([facility] [place]) Orthopedic Shoes with a Toe Filler for the Right Foot See Rx Instructions .Route .MEDSUPPLY Qty: 1 0RF Rx Instructions: As directed HOME (DME) Toe Filler Bilateral See Rx Instructions .Route .MEDSUPPLY Qty: 1 0RF Rx Instructions: As directed by [facility] benztropine 1 mg Tablet 1 mg PO DAILY duloxetine 60 mg Capsule,Delayed Release(Dr/Ec) 60 mg PO DAILY Chantix 1 mg Tablet 1 mg PO BID Discharge Orders: Discharge ED (Routine); Ordered 05/03/23 Ordered By: Dylan Cespedes Referrals: Robert Hercules MD [Primary Care Provider] - Discharge Diet: Usual diet Discharge Activity: Increase activity as tolerated Patient Instructions: TMJ (Temporomandibular Joint Syndrome) Activity Restrictions/Additional Instructions: Follow-up with specialist regarding further evaluation for rheumatoid arthritis involvement of the jaw. Return to ER for new concerns. Coding Level of Care Code ED Licensed Journeyman Electrician for Daniel Saavedra
--- NOTE | 2023-05-03 00:24 | XRR_ITS ---
PROCEDURE INFORMATION: Exam: XR Left Mandible Exam date and time: 05/03/2023 12:56 AM Age: 52 years old Clinical indication: Jaw pain; Prior surgery; Surgery date: 6+ months; Surgery type: Cervical fusion; Patient HX: C/O severe left tmj pain. TECHNIQUE: Imaging protocol: XR of the left mandible. Views: 4 or more views COMPARISON: No relevant prior studies available. FINDINGS: Sinuses: Well aerated. No opacification. Bones/joints: No acute fracture demonstrated. Normal mandibular alignment. Dental: Bilateral mandibular dental caries with suspected periodontal disease left greater than right. Soft tissues: No significant soft tissue abnormalities. XR/XR mandible min 4V [id number] IMPRESSION: Bilateral mandibular dental caries with suspected periodontal disease left greater than right.
[2023-05-03 00:39] LABS: Erythrocyte Sedimentation Rate 34 mm/hr (0-15)
[2023-05-03 00:41] LABS: Basophils # 0.1 10^3/uL (0.0-0.1); Basophils % 0.5 %; Eosinophils # 0.1 10^3/uL (0.0-0.8); Eosinophils % 0.7 %; Hematocrit 41.1 % (36-47); Lymphocytes # 1.4 10^3/uL (0.8-4.8); Lymphocytes % 11.5 %; Mean Corpuscular HGB Conc 32.1 g/dL (30-55); Mean Corpuscular Hemoglobin 27.6 pg (27-33); Mean Corpuscular Volume 85.8 fl (85-98); Mean Platelet Volume 9.1 fL (7.4-10.4); Monocytes % 8.6 %; Neutrophils # 9.23 10^3/uL (1.8-7.7); Neutrophils % 78.4 %; Nucleated Red Blood Cells % 0 %; Platelet Count 465 10^3/cmm (157-399); Red Blood Count 4.79 10^6/uL (3.85-5.65); Red Cell Distribution Width 12.9 % (12.1-15.1); White Blood Count 11.78 10^3/uL (3.29-11.43)
[2023-05-03] MEDS: ketorolac 30 mg/mL INJ 15 MG IVP (00:44)
[2023-05-03] MEDS: dexamethasone 10 mg/mL INJ IVP (00:46)
[2023-05-03] MEDS: HYDROmorphone 1 mg/mL INJ 1 mL IVP (00:48)
[2023-05-03 01:07] LABS: Alanine Aminotransferase 12 U/L (0-33); Albumin Level 4.3 g/dL (3.5-5.2); Alkaline Phosphatase 146 U/L (35-105); Aspartate Amino Transferase 14 U/L (0-32); Blood Urea Nitrogen 24 mg/dL (6-20); C Reactive Protein 20.8 mg/L (0.0-4.9); Calcium 10.2 mg/dL (8.5-10.5); Carbon Dioxide 26 mmol/L (22-29); Chloride 96 mmol/L (98-107); Globulin 4.1 g/dL (1.3-4.6); Glomerular Filtration Rate 87.2 mL/min (90-130); Glucose 136 mg/dL (65-115); Osmolality Calculated 290 mOsm/kg (285-295); Sodium 137 mmol/L (136-145); Total Bilirubin 0.4 mg/dL (0.15-1.2); Total Protein 8.4 g/dL (6.6-8.7)
[2023-05-03 01:43] VITALS: BP 155/92; PULSE 89; RESP 16; O2SAT 97
== END 2023-05-03 01:44 | disposition home or self-care (01) ==
PROVIDERS: Emergency Provider Nurse Practitioner Family; PCP Internal Medicine Rheumatology
DX: M26.629 Arthralgia of temporomandibular joint, unspecified side (principal); F17.210 Nicotine dependence, cigarettes, uncomplicated
CPT/HCPCS: 36415; 70110; 80053; 85025; 85651; 86140; 96374; 96375; 99284; J1100; J1170; J1885

== ENCOUNTER → 2023-05-24 14:00 | Outpatient (BNVA) | payer MEDICARE, SELFPAY | PROVIDERS: PCP Family Medicine; Visit Provider Internal Medicine Rheumatology | DX: M05.79 Rheumatoid arthritis with rheumatoid factor of multiple sites without organ or systems involvement (principal); Z79.899 Other long term (current) drug therapy; R21 Rash and other nonspecific skin eruption | CPT/HCPCS: 99214 ==

== ENCOUNTER 2023-06-04 07:21 | Oncology outpatient (recurring) (ONCR) | payer MEDICARE, SELFPAY ==
[2023-06-04 08:04] VITALS: BP 148/92; PULSE 90; TEMP 37.3; O2SAT 98
--- NOTE | 2023-06-04 10:09 | PC.NURSE ---
Pt in infusion suite for Abatacept infusion from Dr. Powell's office. Pt states she has been taking antibiotics for an infected tooth for 4 days now. Informed pt, per Dr. Powell's office, we can not administer medication until she has been symptom free and off antibiotics for 2 weeks. Deaccessed pt. Pt has new appointment for 2 weeks, states she will stop antibiotics today due to her only taking them because she had some left over from previous prescription.
== END 2023-06-22 23:59 | disposition home or self-care (01) ==
PROVIDERS: PCP Family Medicine; Visit Provider Internal Medicine Rheumatology
DX: Z45.2 Encounter for adjustment and management of vascular access device (principal)

== ENCOUNTER 2023-12-30 11:16 | Oncology outpatient (recurring) (ONCR) | payer MEDICARE, SELFPAY ==
[2023-12-30 11:38] VITALS: BP 156/86; PULSE 61; RESP 16; TEMP 36.4; O2SAT 97
[2023-12-30 12:06] LABS: Basophils # 0.1 10^3/uL (0.0-0.1); Eosinophils # 0.3 10^3/uL (0.0-0.8); Eosinophils % 5.2 %; Hematocrit 38.4 % (36-47); Lymphocytes # 1.5 10^3/uL (0.8-4.8); Lymphocytes % 25.1 %; Mean Corpuscular HGB Conc 33.1 g/dL (30-55); Mean Corpuscular Volume 81.7 fl (85-98); Mean Platelet Volume 9.7 fL (7.4-10.4); Monocytes # 0.5 10^3/uL (0.2-0.9); Neutrophils # 3.48 10^3/uL (1.8-7.7); Neutrophils % 60.4 %; Nucleated Red Blood Cells % 0 %; Platelet Count 425 10^3/cmm (157-399); Red Cell Distribution Width 15.3 % (12.1-15.1); White Blood Count 5.77 10^3/uL (3.29-11.43)
[2023-12-30] MEDS: sodium chloride 0.9% 250 ML 75 ML IV (12:22)
[2023-12-30] MEDS: diphenhydrAMINE 50 mg/mL SDV 1mL 25 MG IVP (12:23)
[2023-12-30] MEDS: acetaminophen 325 mg Tablet 650 MG PO (12:23)
[2023-12-30 12:40] LABS: Erythrocyte Sedimentation Rate 60 mm/hr (0-15)
[2023-12-30] MEDS: abatacept 750 MG in sodium chloride 0.9% (100 ml) 100 ML 200 MG IV (12:56)
[2023-12-30 13:15] LABS: Alanine Aminotransferase 11 U/L (0-33); Albumin Level 3.6 g/dL (3.5-5.2); Alkaline Phosphatase 136 U/L (35-105); Creatinine Clr Calc Pharmacy 111.5788; Globulin 3.9 g/dL (1.3-4.6); Glomerular Filtration Rate 103.8 mL/min (90-130); Total Bilirubin 0.2 mg/dL (0.15-1.2); Total Protein 7.5 g/dL (6.6-8.7)
[2023-12-30 13:21] LABS: Aspartate Amino Transferase 23 U/L (0-32)
[2023-12-30 13:36] VITALS: BP 137/84; PULSE 61; TEMP 36.9; O2SAT 100
== END 2024-01-21 23:59 | disposition home or self-care (01) ==
PROVIDERS: PCP Family Medicine; Visit Provider Internal Medicine Rheumatology
DX: M05.79 Rheumatoid arthritis with rheumatoid factor of multiple sites without organ or systems involvement (principal)
CPT/HCPCS: 80076; 82565; 85025; 85651; 96365; 96375; A4222; J0129; J1200; J7050

== ENCOUNTER 2024-01-27 09:20 | Oncology outpatient (recurring) (ONCR) | payer MEDICARE, SELFPAY ==
[2024-01-27 10:13] VITALS: BP 129/78; PULSE 83; RESP 16; TEMP 36.6; O2SAT 96
[2024-01-27] MEDS: acetaminophen 325 mg Tablet 650 MG PO (10:57)
[2024-01-27] MEDS: sodium chloride 0.9% 250 ML 35 ML IV (10:58)
[2024-01-27] MEDS: diphenhydrAMINE 50 mg/mL SDV 1mL 25 MG IVP (11:10)
[2024-01-27] MEDS: abatacept 750 MG in sodium chloride 0.9% (100 ml) 100 ML 200 MG IV (11:42)
[2024-01-27 12:46] VITALS: BP 123/79; PULSE 80; RESP 18; TEMP 36.6; O2SAT 93
== END 2024-02-20 23:59 | disposition home or self-care (01) ==
PROVIDERS: PCP Family Medicine; Visit Provider Internal Medicine Rheumatology
DX: M05.79 Rheumatoid arthritis with rheumatoid factor of multiple sites without organ or systems involvement (principal)
CPT/HCPCS: 96365; 96375; J0129; J1200; J7050

== ENCOUNTER 2024-03-15 10:30 | Oncology outpatient (recurring) (ONCR) | payer MEDICARE, SELFPAY ==
--- NOTE | 2024-03-01 15:04 | PC.NURSE ---
Pt in infusion room for her actemra infusion. Pt was brought back to room by JOVANNY Carter due to pt being upset in waiting room. Pt was brought back at approx. 1445, appt time was 1430. This nurse went to pt. Pt was very frustrated for having to wait. Pt states she finished antibiotics wednesday and had told someone here that when she called yesterday, she did not know who she spoke with on the phone. Pt was very mad that she might not get infusion. This nurse stated Dr. Powell would be called to check if we can give infusion. Pt got mad and left before I could call Dr. Powell. Pt did not get another appointment.
[2024-03-15 10:50] VITALS: BP 138/81; PULSE 78; RESP 16; TEMP 36.5; O2SAT 97
[2024-03-15] MEDS: acetaminophen 325 mg Tablet 650 MG PO (11:04)
[2024-03-15] MEDS: sodium chloride 0.9% 250 ML 75 ML IV (11:08)
[2024-03-15] MEDS: diphenhydrAMINE 50 mg/mL SDV 1mL 25 MG IVP (11:08)
[2024-03-15] MEDS: abatacept 750 MG in sodium chloride 0.9% (100 ml) 100 ML 200 MG IV (11:40)
[2024-03-15 12:23] VITALS: BP 148/82; PULSE 71; RESP 16; TEMP 36.5; O2SAT 95
== END 2024-03-22 23:59 | disposition home or self-care (01) ==
PROVIDERS: PCP Family Medicine; Visit Provider Internal Medicine Rheumatology
DX: Z53.9 Procedure and treatment not carried out, unspecified reason (principal); M05.79 Rheumatoid arthritis with rheumatoid factor of multiple sites without organ or systems involvement; Z79.899 Other long term (current) drug therapy
CPT/HCPCS: 96365; A4222; J0129; J1200; J7050

== ENCOUNTER → 2024-04-17 10:45 | Outpatient (BNVA) | payer MEDICARE, SELFPAY | PROVIDERS: PCP Family Medicine; Visit Provider Internal Medicine Rheumatology | DX: M05.79 Rheumatoid arthritis with rheumatoid factor of multiple sites without organ or systems involvement (principal); Z79.899 Other long term (current) drug therapy; Z71.85 Encounter for immunization safety counseling; R21 Rash and other nonspecific skin eruption; Z11.1 Encounter for screening for respiratory tuberculosis; Z11.59 Encounter for screening for other viral diseases; F17.200 Nicotine dependence, unspecified, uncomplicated | CPT/HCPCS: 36415; 80076; 82565; 85025; 85651; 86140; 99214 ==

== ENCOUNTER → 2024-12-11 11:13 | Outpatient (BNVA) | payer MEDICARE, SELFPAY | PROVIDERS: PCP Family Medicine; Visit Provider Podiatrist Foot & Ankle Surgery | DX: Z89.431 Acquired absence of right foot (principal); Z89.432 Acquired absence of left foot | CPT/HCPCS: 99213 ==